=== PATIENT | female | born 1975 | race Caucasian/White ===

== ENCOUNTER 2016-10-15 20:14 | Inpatient (IN) | payer OTHER ==
[~2016-10-15] VITALS: Ht 165.1 cm; Wt 53.0 kg
[2016-10-15 21:11] LABS: BASOPHIL % 0.4 % (0-2); PLATELET COUNT 272 x10^3mcL (130-400); RED CELL DISTRIBUTION WIDTH 13.5 % (11.5-14.5)
[2016-10-15 21:21] LABS: CALCIUM 8.6 mg/dL (8.5-10.1); CARBON DIOXIDE 24.7 mmol/L (21-32); CHLORIDE SERUM 102 mmol/L (98-107); GFR1 > 60 mL/min; GLUCOSE SERUM 118 mg/dL (74-106); POTASSIUM SERUM 3.3 mmol/L (3.5-5.1); SODIUM SERUM 138 mmol/L (136-145)
[2016-10-15 21:25] LABS: ALBUMIN 3.7 g/dL (3.4-5.0); ALKALINE PHOSPHATASE 47 U/L (46-116); ALT/SGPT 14 U/L (14-59); AMYLASE 59 U/L (25-115); AST/SGOT 15 U/L (15-37); BILIRUBIN TOTAL 0.4 mg/dL (0.20-1.00); LIPASE 108 IU/L (73-393); TOTAL PROTEIN, SERUM 7.7 g/dL (6.4-8.2)
[2016-10-15 21:57] LABS: UA SPECIFIC GRAVITY 1.015 (1.005-1.035); microscopic required? YES; urine erythrocyte NEGATIVE (NEGATIVE)
[2016-10-16 02:47] VITALS: BP 95/61
[2016-10-16 03:19] LABS: T3 TOTAL 1.07 ng/mL
[2016-10-16 03:40] LABS: FREE T4 0.95 ng/dL (0.76-1.46); FREE THYROXINE INDEX 2.4 ug/dL (1.4-4.5); T4(THYROXINE) 7.4 ug/dL (4.7-13.3)
[2016-10-16 04:01] LABS: PHOSPHOROUS 3.9 mg/dL (2.5-4.9)
[2016-10-16 04:10] LABS: CHOLESTEROL/HDL RATIO 2.5
[2016-10-16 05:59] VITALS: BP 118/75
[2016-10-16 09:56] VITALS: BP 112/74
[2016-10-16 14:12] VITALS: BP 104/72
[2016-10-16 17:25] VITALS: BP 92/52
[2016-10-16 21:58] VITALS: BP 97/60
[2016-10-17 06:06] VITALS: BP 102/59
[2016-10-17 08:03] LABS: BASOPHIL % 0.6 % (0-2); PLATELET COUNT 267 x10^3mcL (130-400); RED CELL DISTRIBUTION WIDTH 13.8 % (11.5-14.5)
[2016-10-17 08:21] LABS: CALCIUM 8.5 mg/dL (8.5-10.1); CARBON DIOXIDE 26.9 mmol/L (21-32); CHLORIDE SERUM 105 mmol/L (98-107); CREATININE SERUM 0.8 mg/dL (0.6-1.0); GFR1 > 60 mL/min; GLUCOSE SERUM 91 mg/dL (74-106); SODIUM SERUM 137 mmol/L (136-145)
[2016-10-17 09:25] VITALS: BP 91/54
[2016-10-17] MEDS ORDERED: SEN PO (09:51)
[2016-10-17 11:26] VITALS: BP 91/54
== END 2016-10-17 12:00 | disposition home or self-care (01) | DRG 247 ==
LOC: ED 20:14 → DU 10-16 01:22
PROVIDERS: Emergency Medicine; Student in an Organized Health Care Education/Training Program; ADMIT Family Medicine
DX: K56.7 Ileus, unspecified (principal); N17.0 Acute kidney failure with tubular necrosis; E87.6 Hypokalemia; F17.210 Nicotine dependence, cigarettes, uncomplicated; E78.5 Hyperlipidemia, unspecified; N39.0 Urinary tract infection, site not specified; Z68.1 Body mass index [BMI] 19.9 or less, adult
CPT/HCPCS: 83880; 84439; J0696; J2270; J7030; Q0092; Q9967

== ENCOUNTER 2017-01-03 19:02 | Inpatient (IN) | payer OTHER ==
[~2017-01-03] VITALS: Ht 165.1 cm; Wt 54.8 kg
[~2017-01-03 19:02] MED LIST: SEN PO
[2017-01-03 20:43] LABS: BASOPHIL % 0.3 % (0-2); PLATELET COUNT 268 x10^3mcL (130-400); RED CELL DISTRIBUTION WIDTH 12.5 % (11.5-14.5)
[2017-01-03 20:58] LABS: ALBUMIN 3.7 g/dL (3.4-5.0); ALKALINE PHOSPHATASE 46 U/L (46-116); ALT/SGPT 15 U/L (14-59); AMYLASE 58 U/L (25-115); AST/SGOT 17 U/L (15-37); BILIRUBIN TOTAL 0.43 mg/dL (0.20-1.00); CALCIUM 8.7 mg/dL (8.5-10.1); CARBON DIOXIDE 26.9 mmol/L (21-32); CREATININE SERUM 0.9 mg/dL (0.6-1.0); GFR1 > 60 mL/min; GLUCOSE SERUM 119 mg/dL (74-106); LIPASE 117 IU/L (73-393)
[2017-01-03 21:07] LABS: CHLORIDE SERUM 99 mmol/L (98-107); POTASSIUM SERUM 3.6 mmol/L (3.5-5.1); SODIUM SERUM 137 mmol/L (136-145)
[2017-01-03] MEDS ORDERED: BENTYL10 MG PO (22:10)
[2017-01-03] MEDS ORDERED: PRILOSEC OTC20 M1 PO (22:11)
[2017-01-03 22:34] LABS: UA SPECIFIC GRAVITY 1.025 (1.005-1.035); microscopic required? YES; urine erythrocyte TRACE (NEGATIVE)
[2017-01-04 00:34] VITALS: BP 110/71
[2017-01-04 05:21] VITALS: BP 109/75
[2017-01-04 06:14] LABS: BASOPHIL % 0.3 % (0-2); PLATELET COUNT 234 x10^3mcL (130-400); RED CELL DISTRIBUTION WIDTH 12.1 % (11.5-14.5)
[2017-01-04 06:22] LABS: CALCIUM 8.1 mg/dL (8.5-10.1); CARBON DIOXIDE 26.4 mmol/L (21-32); CHLORIDE SERUM 99 mmol/L (98-107); CREATININE SERUM 0.8 mg/dL (0.6-1.0); GFR1 > 60 mL/min; GLUCOSE SERUM 149 mg/dL (74-106); POTASSIUM SERUM 4.1 mmol/L (3.5-5.1); SODIUM SERUM 134 mmol/L (136-145)
[2017-01-04 09:16] VITALS: BP 109/75
[2017-01-04 13:18] VITALS: BP 98/69
[2017-01-04 17:01] VITALS: BP 108/56; BP 108/69
[2017-01-04 21:16] VITALS: BP 101/69
[2017-01-05 06:09] LABS: CALCIUM 8.5 mg/dL (8.5-10.1); CARBON DIOXIDE 25.7 mmol/L (21-32); CHLORIDE SERUM 104 mmol/L (98-107); CREATININE SERUM 0.9 mg/dL (0.6-1.0); GFR1 > 60 mL/min; GLUCOSE SERUM 95 mg/dL (74-106); POTASSIUM SERUM 4.1 mmol/L (3.5-5.1); SODIUM SERUM 137 mmol/L (136-145)
[2017-01-05 06:22] LABS: BASOPHIL % 0.2 % (0-2); PLATELET COUNT 278 x10^3mcL (130-400); RED CELL DISTRIBUTION WIDTH 12.7 % (11.5-14.5)
[2017-01-05 06:45] VITALS: BP 91/58
[2017-01-05 10:04] VITALS: BP 83/54
[2017-01-05 14:46] VITALS: BP 83/54
[2017-01-05 17:36] VITALS: BP 97/58
== END 2017-01-05 18:25 | disposition home or self-care (01) | DRG 222 ==
LOC: ED 19:02 → DU 23:34 → MU 01-04 17:26
PROVIDERS: Emergency Medicine; Internal Medicine Pulmonary Disease; ADMIT Internal Medicine Pulmonary Disease
PROC: 0DH67UZ Insertion of Feeding Device into Stomach, Via Natural or Artificial Opening (ICD-10-PCS; principal; 2017-01-03)
DX: R10.9 Unspecified abdominal pain (principal)
CPT/HCPCS: 83880; J0696; J1885; J2270; J2405; J2550; J3010; J3490; J7030; Q0092